=== PATIENT | female | born 1965 | race Two or more races ===

== ENCOUNTER 2017-04-25 19:00 | Emergency (ER) | payer SELFPAY ==
[~2017-04-25] VITALS: Ht 162.6 cm; Wt 64.9 kg
[2017-04-25 19:32] VITALS: BP 150/71
[2017-04-25] MEDS ORDERED: HYDROCODONE/APAP 10/325MG 1 EA TABLET ONE (19:43)
[2017-04-25] MEDS ORDERED: ONDANSETRON 4 MG TAB.RAPDIS ONE (19:43)
[2017-04-25] MEDS ORDERED: HYDROCODONE/APAP 10/325MG 1 EA TABLET PO ONE (20:00)
[2017-04-25] MEDS ORDERED: ONDANSETRON 4 MG TAB.RAPDIS PO ONE (20:00)
== END 2017-04-25 21:15 | disposition home or self-care (01) ==
LOC: ER 19:00
DX: S00.03XA Contusion of scalp, initial encounter (principal); I10 Essential (primary) hypertension; M25.552 Pain in left hip; V01.00XA Pedestrian on foot injured in collision with pedal cycle in nontraffic accident, initial encounter; Y93.89 Activity, other specified; Y92.488 Other paved roadways as the place of occurrence of the external cause; Y99.8 Other external cause status
CPT/HCPCS: 70450; 73503; 99284; A4606; Q0162; Z7610; 73502